=== PATIENT | male | born 1985 | race Two or more races ===

== ENCOUNTER 2017-07-25 09:11 | Emergency (ER) | payer OTHER ==
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
[2017-07-25 09:25] LABS: % IMMATURE GRANULYOCYTES 0.7 % (0.0-1.1); ABSOLUTE IMMATURE GRANULOCYTES 0.04 10^3/uL (0.00-0.10); ADD DIFF? NO; ADD MORPH? NO; ADD SCAN? NO; ATYPICAL LYMPHOCYTE FLAG 10 (0-99); FRAGMENT RBC FLAG 0 (0-99); HEMATOCRIT 48.6 % (40.0-51.0); HEMOGLOBIN 16.8 g/dL (13.7-17.5); LEFT SHIFT FLG 0 (0-99); LIPEMIA HEMOLYSIS FLAG 90 (0-99); MEAN CELL HEMOGLOBIN 31.6 pg (27.9-34.1); MEAN CELL HEMOGLOBIN CONCENTR. 34.6 g/dL (32.4-36.7); MEAN CELL VOLUME 91.4 fL (81.5-99.8); PLATELET CLUMPS FLAG 0 (0-99); PLATELET COUNT 257 10^3/uL (150-400); RED BLOOD CELL COUNT 5.32 10^6/uL (4.40-6.38); RED CELL DISTRIBUTION WIDTH 12.1 % (11.5-15.2)
--- NOTE | 2017-07-25 09:29 | CPEKG ---
Heart Rate: 85 RR Interval: 706 P-R Interval: 164 QRSD Interval: 92 QT Interval: 344 QTC Interval: 409 P Gormania: 42 QRS Gormania: 22 T Wave Gormania: 0 EKG Severity - NORMAL ECG - EKG Impression: SINUS RHYTHM Electronically Signed By: Apolonia Padgett 27-Jul-2017 14:15:28
[2017-07-25 09:32] VITALS: O2SAT 94
[2017-07-25 09:35] LABS: INR 0.92 (0.83-1.16); PROTIME(PATIENT) 12.6 SEC (12.0-15.0)
[2017-07-25 09:36] LABS: APTT 26.3 SEC (23.0-38.0)
[2017-07-25 09:38] LABS: ALANINE AMINOTRANSFERASE 95 IU/L (21-72); ALBUMIN 4.5 g/dL (3.5-5.0); ALKALINE PHOSPHATASE 92 IU/L (38-126); ANION GAP 13 mEq/L (8-16); ASPARTATE AMINOTRANSFERASE 47 IU/L (17-59); BILIRUBIN,TOTAL 0.5 mg/dL (0.1-1.4); BILIRUBIN-CONJUGATED 0.3 mg/dL (0.0-0.5); BILIRUBIN-UNCONJUGATED 0.2 mg/dL (0.0-1.1); CALCIUM 9.8 mg/dL (8.5-10.4); CARBON DIOXIDE 26 mEq/l (22-31); CHLORIDE 106 mEq/L (97-110); CREATININE 1.1 mg/dL (0.7-1.3); GLOMERULAR FILTRATION RATE > 60; GLUCOSE 110 mg/dL (70-100); POTASSIUM 4.9 mEq/L (3.5-5.2); SODIUM 145 mEq/L (134-144); TOTAL PROTEIN 7.5 g/dL (6.3-8.2)
[2017-07-25 10:31] VITALS: PULSE 82; RESP 18; TEMP 98.4
--- NOTE | 2017-07-25 10:52 | ASMTCMCOM ---
CM Note CM Note Notes: Follow up appointment scheduled for patient at [facility] in [place] on July 31 (details on discharge instructions). ER reports faxed to the clinic . Thorough instructions re discharge provided per Joaquin Ruiznursing unit clerk. Patient verbalizes understanding for follow up including his co-pay ($20) responsibility at his initial appointment, and importance to follow up with the clinic regarding his pending employer provided health insurance. Date Signed: 07/25/2017 10:52 AM Electronically Signed By:Theresa Pedraza RN
[2017-07-25] MEDS ORDERED: HALOPERIDOL LACT 5 MG/ML INJ ONE (10:55)
[2017-07-25 11:34] VITALS: BP 141/93
== END 2017-07-25 11:34 | disposition home or self-care (01) ==
DX: S39.91XA Unspecified injury of abdomen, initial encounter (principal); R03.0 Elevated blood-pressure reading, without diagnosis of hypertension; V49.40XA Driver injured in collision with unspecified motor vehicles in traffic accident, initial encounter; Y92.410 Unspecified street and highway as the place of occurrence of the external cause; Y99.8 Other external cause status; Y93.89 Activity, other specified
CPT/HCPCS: J1630